=== PATIENT | male | born 1940 | race Caucasian/White ===

== ENCOUNTER → 2019-03-10 | Outpatient (CLI) | payer MEDICARE ==
[~2019-03-10] MED LIST: IOPAMIDOL 370 MG/ML 200 ML INFUS..BTL INJ ONE; SODIUM CHLORIDE 0.9% 50ML 50 ML ONE
[2019-03-10 10:17] LABS: BLOOD UREA NITROGEN 13 mg/dL (7-26); BUN/CREATININE RATIO 14 (6-25); CREATININE, SERUM 0.93 mg/dL (0.72-1.25); EST GLOMERULAR FILTRATION RATE > 60 ML/MIN (60-)
--- NOTE | 2019-03-10 11:10 | Diagnostic Imaging Report ---
EXAM: CT Pelvis WITH contrast INDICATION: Prostate cancer COMPARISON: None. TECHNIQUE: Pelvis were scanned utilizing a multidetector helical scanner from the iliac crest to the pubic symphysis following administration of IV contrast. Coronal and sagittal reformations were obtained. Routine protocol was performed. IV CONTRAST: None. ORAL CONTRAST: None RADIATION DOSE: Total DLP: 193.3 mGy*cm COMPLICATIONS: None FINDINGS: LINES and TUBES: None. GI TRACT: No abnormal bowel wall thickening. No bowel obstruction. Normal appendix. PELVIC ORGANS/BLADDER: Heterogeneous enlarged prostate measuring up to 6.0 x 4.2 cm. LYMPH NODES: 6 mm mildly enhancing left internal iliac chain lymph node not meeting size greater for lymphadenopathy. VESSELS: Scattered athetotic calcifications of the common iliac arteries and major branches. PERITONEUM / RETROPERITONEUM: No free air or fluid. BONES: No acute osseous injury. Sclerotic foci at the right intertrochanteric proximal femur and at the L5 vertebral body most likely represent bone islands. SOFT TISSUES: Unremarkable. IMPRESSION: Heterogeneous enlarged prostate measuring up to 6.0 x 4.2 cm. Note is made that CT is not sensitive for evaluation of prostate malignancy. If imaging staging evaluation of prostate cancer is needed, consider MRI. Signed by: Lesley Jaimes MD on 03/10/2019 11:07 AM
--- NOTE | 2019-03-10 16:41 | Diagnostic Imaging Report ---
Bone Scan, delayed phase INDICATION: C61.0 Malignant neoplasm of prostate. Recent elevation of PSA. COMPARISON: CT pelvis 03/10/2019 REPORT: Approximately 3 hours following intravenous administration of 27.5 mCi of Tc-99m MDP, delayed total body images in the anterior and posterior projections and selected spot images were obtained. Focal mildly increased tracer at the anterior end of the right 4th rib, consistent with posttraumatic change. Minimal degenerative changes noted in the lower lumbar spine. Otherwise, distribution of tracer activity is unremarkable throughout the skeletal system. No abnormal accumulation of tracer is seen in the soft tissues or urinary tract. IMPRESSION: No scan evidence of metastatic bone disease. Signed by: Dr. Michaela Live M.D. on 03/10/2019 4:38 PM
== END ==
LOC: NM 08:45
PROVIDERS: ATTEND Urology
DX: C61 Malignant neoplasm of prostate (principal)
CPT/HCPCS: 36415; 72193; 78306; 82565; 84520; A9503; Q9967